=== PATIENT | male | born 1970 | race American Indian/Alaskan Native ===

== ENCOUNTER 2018-05-19 06:27 | Emergency (ER) | payer OTHER ==
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
[2018-05-19] MEDS ORDERED: MOTRIN PO ONE (09:40)
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
[2018-05-19 11:40] VITALS: BP 114/75
== END 2018-05-19 11:39 | disposition home or self-care (01) ==
LOC: ED 06:27
DX: S16.1XXA Strain of muscle, fascia and tendon at neck level, initial encounter (principal); G44.311 Acute post-traumatic headache, intractable; V89.2XXA Person injured in unspecified motor-vehicle accident, traffic, initial encounter; Y93.89 Activity, other specified; Y92.488 Other paved roadways as the place of occurrence of the external cause; Y99.8 Other external cause status
CPT/HCPCS: 72040; 99283